=== PATIENT | female | born 1950 | race Caucasian/White ===

== ENCOUNTER 2022-07-19 08:04 | Outpatient (CLI) | payer MEDICARE, BC, SELFPAY ==
--- NOTE | 2022-07-19 08:15 | CRLHL7_ITS ---
For Patients: As a result of the Century Cures Act, medical imaging exams and procedure reports are released immediately into your electronic medical record. You may view this report before your referring provider. If you have questions, please contact your health care provider. BILATERAL SCREENING MAMMOGRAM WITH COMPUTER-AIDED DETECTION AND TOMOSYNTHESIS TECHNIQUE: CC and MLO views were obtained. These mammographic images have been obtained using full-field digital technique. These mammographic images were interpreted with the benefit of computer-aided detection. Breast Tomosynthesis was used in this interpretation. COMPARISON FILM: 07/13/21, 06/12/20, 04/26/19. FINDINGS: There are scattered areas of fibroglandular density IMPRESSION: There is no radiographic evidence for malignancy. ASSESSMENT: BI-RADS Category 1: Negative RECOMMENDATION: Routine screening mammogram in 1 year. A lay language report of this examination will be provided to the patient. García Irizarry M.D. Diagnostic Radiologist [email or web address] ERICK/Dictated by: García Irizarry MD @ 07/19/2022 12:19:00 PM (Electronically Signed)
== END 2022-07-19 08:05 | disposition home or self-care (01) ==
LOC: MAMMO 08:07
PROVIDERS: PCP Family Medicine; Visit Provider Family Medicine
DX: Z12.31 Encounter for screening mammogram for malignant neoplasm of breast (principal)
CPT/HCPCS: 77063; 77067

== ENCOUNTER 2022-08-01 15:08 | Outpatient (CLI) | payer MEDICARE, BC, SELFPAY ==
[2022-08-01 17:28] LABS: Chloride* 105 mmol/L (96-114); Potassium* 4.9 mmol/L (3.6-5.1); Sodium* 140 mmol/L (135-149)
[2022-08-01 17:31] LABS: Blood Urea Nitrogen* 24 mg/dL (7-30); Carbon Dioxide* 29 mmol/L (20-32); Cholesterol* 227 mg/dL (90-199); Creatinine* 0.9 mg/dL (0.5-1.5); Estimated Glomerular Filt Rate 67 ml/min; Glucose* 94 mg/dL (60-115)
[2022-08-01 17:32] LABS: Calcium* 9.6 mg/dL (8.4-10.6); HDL Cholesterol* 61 mg/dL (>=50); LDL Cholesterol Calculated 123 mg/dL (<100); Triglycerides* 214 mg/dL (40-149)
[2022-08-01 17:44] LABS: Vitamin D 25 Hydroxy* 64 ng/mL (30-80)
== END 2022-08-01 15:09 | disposition home or self-care (01) ==
PROVIDERS: PCP Family Medicine; Visit Provider Family Medicine
DX: R94.4 Abnormal results of kidney function studies (principal); M85.80 Other specified disorders of bone density and structure, unspecified site; E78.5 Hyperlipidemia, unspecified; E03.9 Hypothyroidism, unspecified
CPT/HCPCS: 80048; 80061; 82306; 84443

== ENCOUNTER 2023-07-23 08:58 | Outpatient (CLI) | payer MEDICARE, BC, SELFPAY ==
--- NOTE | 2023-07-23 09:15 | CRLHL7_ITS ---
For Patients: As a result of the Century Cures Act, medical imaging exams and procedure reports are released immediately into your electronic medical record. You may view this report before your referring provider. If you have questions, please contact your health care provider. BILATERAL SCREENING MAMMOGRAM WITH COMPUTER-AIDED DETECTION AND TOMOSYNTHESIS TECHNIQUE: CC and MLO views were obtained. These mammographic images have been obtained using full-field digital technique. These mammographic images were interpreted with the benefit of computer-aided detection. Breast Tomosynthesis was used in this interpretation. COMPARISON FILM: 07/19/22, 07/13/21, 06/12/20. FINDINGS: There are scattered areas of fibroglandular density IMPRESSION: There is no radiographic evidence for malignancy. ASSESSMENT: BI-RADS Category 2: Benign RECOMMENDATION: Routine screening mammogram in 1 year. A lay language report of this examination will be provided to the patient. García Irizarry M.D. Diagnostic Radiologist [email or web address] ERICK/Dictated by: García Irizarry MD @ 07/23/2023 12:04:00 PM (Electronically Signed)
== END 2023-07-23 08:59 | disposition home or self-care (01) ==
LOC: MAMMO 08:59
PROVIDERS: PCP Family Medicine; Visit Provider Family Medicine
DX: Z12.31 Encounter for screening mammogram for malignant neoplasm of breast (principal)
CPT/HCPCS: 77063; 77067

== ENCOUNTER 2023-08-13 09:38 | Outpatient (CLI) | payer MEDICARE, BC, SELFPAY | END 2023-08-13 09:39 | disposition home or self-care (01) | LOC: NFLDREF 14:51 | PROVIDERS: PCP Family Medicine; Referring Provider Family Medicine; Visit Provider Family Medicine | DX: Z00.00 Encounter for general adult medical examination without abnormal findings (principal); E03.9 Hypothyroidism, unspecified; E78.5 Hyperlipidemia, unspecified; M85.80 Other specified disorders of bone density and structure, unspecified site; N95.1 Menopausal and female climacteric states; M85.89 Other specified disorders of bone density and structure, multiple sites | CPT/HCPCS: 80053; 80061; 82306; 84443 ==

== ENCOUNTER 2023-09-10 12:52 | Outpatient (CLI) | payer MEDICARE, BC, SELFPAY ==
--- NOTE | 2023-09-10 13:00 | CRLHL7_ITS ---
For Patients: As a result of the Century Cures Act, medical imaging exams and procedure reports are released immediately into your electronic medical record. You may view this report before your referring provider. If you have questions, please contact your health care provider. DXA BONE MINERAL DENSITY STUDY Current height (in): 60.5. Weight (lb): 131.0. Menopause age: 48. Ethnicity: White. Reason for exam: Osteopenia. 1. Have you had a previous hip or vertebral fracture? No. 2. Have you had any fractures during your adult life which did not result from significant trauma (e.g., auto accident)? No. 3. Did either of your parents have a hip fracture? No. 4. Do you smoke? No. 5. Have you ever taken Glucocorticoids? No. 6. Do you have rheumatoid arthritis? No. 7. Do you have secondary osteoporosis? No. 8. Do you drink 3 or more alcoholic drinks per day? No. 9. Are you being treated for osteoporosis? No. 10. Have you ever taken any of the following medications: Actonel, Evista, Fosamax, Miacalcin, Reclast, Boniva, Forteo, HRT (i.e. estrogen/hormone therapy), Protelos, Prolia, Vitamin D, Calcium, other ??? please specify. ANSWER: Yes. Vitamin D, calcium. 11. Do you have any of the following medical conditions: Anorexia or bulimia, asthma or emphysema, end stage renal disease, hyperparathyroidism, any seizure disorders, cancer, inflammatory bowel diseases, hysterectomy, other ??? please specify. ANSWER: No. 12. What was your maximum height (inches)? 61. 13. Do you perform weight bearing exercise regularly? Yes. 14. Do you regularly consume dairy products? Yes. 15. Do you drink caffeinated beverages? Yes. 16. At what age did your period start? 7. 17. Are you premenopausal? No. 18. How many full-term pregnancies have you had? 2. 19. Have you ever missed your period for more than 6 months in a row (not including or menopause)? No. TECHNIQUE: Bone mineral density study was performed using the [employer]. FINDINGS: The results of the study expressed as bone mineral density (BMD) are as follows: Lumbar spine L1 to L3: BMD: 1.000 g/cm2. T-score: -0.2. Z-score: 2.2. Neck Left: BMD: 0.595 g/cm2. T-score: -2.3. Z-score: -0.2. Right: BMD: 0.719 g/cm2. T-score: -1.2. Z-score: 0.9. Total Left: BMD: 0.767 g/cm2. T-score: -1.4. Z-score: 0.4. Right: BMD: 0.872 g/cm2. T-score: -0.6. Z-score: 1.2. IMPRESSION: Osteopenia. *Comparison exams done prior to 04/2020 were performed on different unit, [employer]. COMPARISON: Compared with scan of 07/12/2020, the bone mineral density has increased by 7.5 percent at the spine and increased by 1.0 percent at the hip. FRAX 10-year Fracture Risk Major Osteoporotic Fracture: 15 percent Hip Fracture: 4.3 percent Reported Risk Factors: [place] () Neck BMD = 0.595, BMI = 25.2 García Irizarry M.D. Diagnostic Radiologist [email or web address] Transcribed: 11:11 am DW/Dictated by: García Irizarry MD @ 09/11/2023 10:03:00 AM DW/Dictated by: García Irizarry MD @ 09/11/2023 10:03:00 AM (Electronically Signed)
== END 2023-09-10 12:53 | disposition home or self-care (01) ==
PROVIDERS: PCP Family Medicine; Visit Provider Family Medicine
DX: M85.80 Other specified disorders of bone density and structure, unspecified site (principal); Z78.0 Asymptomatic menopausal state
CPT/HCPCS: 77080

== ENCOUNTER 2023-10-25 15:59 | Emergency (ER) | payer MEDICARE, BC, SELFPAY ==
[2023-10-25 16:03] VITALS: BP 156/81; PULSE 83; RESP 16; TEMP 36.4; O2SAT 100; BMI 26.4
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
[2023-10-25] MEDS: OXYCODONE 5 MG TABLET 2.5 MG PO (17:11)
[2023-10-25 17:30] VITALS: PULSE 77; O2SAT 98
== END 2023-10-25 17:32 | disposition home or self-care (01) ==
PROVIDERS: Emergency Provider Student in an Organized Health Care Education/Training Program; PCP Family Medicine
DX: T23.002A Burn of unspecified degree of left hand, unspecified site, initial encounter (principal); X13.1XXA Other contact with steam and other hot vapors, initial encounter
CPT/HCPCS: 95992; 99283; A9270

== ENCOUNTER 2023-11-17 13:51 | Outpatient (CLI) | payer MEDICARE, BC, SELFPAY ==
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
--- OUTSIDE RECORDS SUMMARY | 2023-11-20 10:55 | XMS_ITS | Encounter Summary ---
Author Name Unknown Organization [facility] Address [address] [place] [address] Phone Care Team Providers Care Information Systems Security Specialist Name Role Phone Unavailable Primary Care Provider Unavailabl e Encounter Details Date Type Department Care Team Description 10/27/2023 Travel Social History Tobacco Use Types Packs/Day Years [...] Coronavirus/COVID-19? 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
== END 2023-11-17 13:52 | disposition home or self-care (01) ==
LOC: NFLDREF 11-20 10:53
PROVIDERS: PCP Family Medicine; Referring Provider Family Medicine; Visit Provider Registered Nurse
DX: R30.0 Dysuria (principal); N39.0 Urinary tract infection, site not specified
CPT/HCPCS: 87086

== ENCOUNTER 2024-08-16 09:25 | Outpatient (CLI) | payer MEDICARE, BC, SELFPAY ==
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
--- OUTSIDE RECORDS SUMMARY | 2024-08-18 12:19 | XMS_ITS | Referral Summary ---
Author Organization [facility] Address [address] [place], [place] [address] [address] Phone Care Team Providers Care Marketing Communications Assistant Name Role Phone Unavailable Primary Care Provider Unavailabl e Source Comments [employer] is fully rolled out on [employer]. Last update 04/14/09.Tiansheng Allergies Active Allergy Reactions Criticality Noted Date [...] Orientation Not on file Plan of Treatment Not on file [id number] [facility] [place] [id number]
== END 2024-08-16 09:26 | disposition home or self-care (01) ==
LOC: NFLDREF 08-18 12:18
PROVIDERS: PCP Family Medicine; Referring Provider Family Medicine; Visit Provider Family Medicine
DX: E03.9 Hypothyroidism, unspecified (principal); E78.5 Hyperlipidemia, unspecified; M85.80 Other specified disorders of bone density and structure, unspecified site; R94.4 Abnormal results of kidney function studies
CPT/HCPCS: 80053; 80061; 82306; 84443

== ENCOUNTER 2024-10-25 14:28 | Outpatient (CLI) | payer MEDICARE, BC, SELFPAY ==
--- NOTE | 2024-10-25 14:40 | CRLHL7_ITS ---
For Patients: As a result of the Century Cures Act, medical imaging exams and procedure reports are released immediately into your electronic medical record. You may view this report before your referring provider. If you have questions, please contact your health care provider. BILATERAL SCREENING MAMMOGRAM WITH COMPUTER-AIDED DETECTION AND TOMOSYNTHESIS TECHNIQUE: CC and MLO views were obtained. These mammographic images have been obtained using full-field digital technique. These mammographic images were interpreted with the benefit of computer-aided detection. Breast Tomosynthesis was used in this interpretation. COMPARISON FILM: 07/23/23, 07/19/22, 07/13/21. FINDINGS: There are scattered areas of fibroglandular density IMPRESSION: There is no radiographic evidence for malignancy. ASSESSMENT: BI-RADS Category 2: Benign RECOMMENDATION: Routine screening mammogram in 1 year. A lay language report of this examination will be provided to the patient. García Irizarry M.D. Diagnostic Radiologist [email or web address] Transcribed: 3:45 p.mDavid melvin/Dictated by: García Irizarry MD @ 10/26/2024 9:06:00 AM (Electronically Signed)
== END 2024-10-25 14:29 | disposition home or self-care (01) ==
LOC: MAMMO 14:30
PROVIDERS: PCP Family Medicine; Visit Provider Family Medicine
DX: Z12.31 Encounter for screening mammogram for malignant neoplasm of breast (principal)
CPT/HCPCS: 77063; 77067

== ENCOUNTER 2025-07-28 10:16 | Outpatient (CLI) | payer MEDICARE, BC, SELFPAY ==
--- NOTE | 2025-07-28 11:25 | P.ANES_ITS ---
Anesthesia Charges Start Date/Time Anesthesia Start Date: 07/28/25 Anesthesia Start Time: 10:53 Stop Date/Time Anesthesia Stop Date: 07/28/25 Anesthesia Stop Time: 11:23 Summary Extremes of Age - Over 70 or under 1: MDA Coding CPT Codes CPT Codes: ANES LWR INTST NDSC NOS - 06988 ([id number]) P2 - PATIENT W/MILD SYST DISEASE, QK - HOOF TRIMMER 2-4 CNCRNT ANES PROC, QX - HOME ASSESSMENT NURSE SVC W/ MD MED DIRECTION Additional Codes: Summary - Extremes of Age - Over 70 or under 1: MDA ([id number])
--- NOTE | 2025-07-28 11:25 | W.ANESCHARGE ---
Anesthesia Charges Start Date/Time Anesthesia Start Date: 07/28/25 Anesthesia Start Time: 10:53 Stop Date/Time Anesthesia Stop Date: 07/28/25 Anesthesia Stop Time: 11:23 Summary Extremes of Age - Over 70 or under 1: MDA Coding CPT Codes CPT Codes: ANES LWR INTST NDSC NOS - 43116 ([id number]) P2 - PATIENT W/MILD SYST DISEASE, QK - BAR TURNER 2-4 CNCRNT ANES PROC, QX - MARGARINE CHURN OPERATOR SVC W/ MD MED DIRECTION Additional Codes: Summary - Extremes of Age - Over 70 or under 1: MDA ([id number])
--- NOTE | 2025-07-28 11:28 | P.ANES_ITS ---
Anesthesia Charges Start Date/Time Anesthesia Start Date: 07/28/25 Anesthesia Start Time: 10:53 Stop Date/Time Anesthesia Stop Date: 07/28/25 Anesthesia Stop Time: 11:23 Coding CPT Codes CPT Codes: RULA LWR INTST NDSC NOS - 07943 ([id number]) P2 - PATIENT W/MILD SYST DISEASE, QK - CORKING MACHINE OPERATOR 2-4 CNCRNT ANES PROC, QX - VULCAN CREWMEMBER SVC W/ MD MED DIRECTION Additional Codes: Summary - Extremes of Age - Over 70 or under 1: [id number] 1 W.PM.ANESCHARGES 1 3 W.ANESAGES
--- NOTE | 2025-07-28 11:28 | W.ANESCHARGE ---
Anesthesia Charges Start Date/Time Anesthesia Start Date: 07/28/25 Anesthesia Start Time: 10:53 Stop Date/Time Anesthesia Stop Date: 07/28/25 Anesthesia Stop Time: 11:23 Coding CPT Codes CPT Codes: RULA LWR INTST NDSC NOS - 98194 ([id number]) P2 - PATIENT W/MILD SYST DISEASE, QK - HARDWARE SALES ASSISTANT 2-4 CNCRNT ANES PROC, QX - STOCK REPLENISHER SVC W/ MD MED DIRECTION Additional Codes: Summary - Extremes of Age - Over 70 or under 1: [id number] 1 W.PM.ANESCHARGES 1 3 W.ANESAGES
== END 2025-07-28 10:17 | disposition home or self-care (01) ==
LOC: OP CLINIC 10:16
PROVIDERS: PCP Family Medicine; Visit Provider Surgery
DX: Z12.11 Encounter for screening for malignant neoplasm of colon (principal); Z86.0100 Personal history of colon polyps, unspecified; D12.2 Benign neoplasm of ascending colon; D12.5 Benign neoplasm of sigmoid colon; K64.8 Other hemorrhoids; K57.30 Diverticulosis of large intestine without perforation or abscess without bleeding
CPT/HCPCS: 00811; 45385; 88302; 88305; 99100

== ENCOUNTER 2025-08-22 09:15 | Outpatient (CLI) | payer MEDICARE, BC, SELFPAY | END 2025-08-22 09:16 | disposition home or self-care (01) | LOC: NFLDREF 08-23 08:56 | PROVIDERS: PCP Family Medicine; Referring Provider Family Medicine; Visit Provider Family Medicine | DX: E78.5 Hyperlipidemia, unspecified (principal); E03.9 Hypothyroidism, unspecified | CPT/HCPCS: 80061; 82306; 84443 ==

== ENCOUNTER 2025-09-15 14:19 | Outpatient (CLI) | payer MEDICARE, BC, SELFPAY ==
--- NOTE | 2025-09-15 14:30 | CRLHL7_ITS ---
For Patients: As a result of the Century Cures Act, medical imaging exams and procedure reports are released immediately into your electronic medical record. You may view this report before your referring provider. If you have questions, please contact your health care provider. XR DXA BONE MINERAL DENSITY (BMD) Current height (in): 60.5. Weight (lb): 126.0. Menopause age: 48. Ethnicity: White. Reason for exam: Osteopenia. 1. Have you had a previous hip or vertebral fracture? No. 2. Have you had any fractures during your adult life which did not result from significant trauma (e.g., auto accident)? No. 3. Did either of your parents have a hip fracture? No. 4. Do you smoke? No. 5. Have you ever taken Glucocorticoids? No. 6. Do you have rheumatoid arthritis? No. 7. Do you have secondary osteoporosis? No. 8. Do you drink 3 or more alcoholic drinks per day? No. 9. Are you being treated for osteoporosis? No. 10. Have you ever taken any of the following medications: Actonel, Evista, Fosamax, Miacalcin, Reclast, Boniva, Forteo, HRT (i.e. estrogen/hormone therapy), Protelos, Prolia, Vitamin D, Calcium, other ??? please specify. ANSWER: Yes, vitamin D, calcium. 11. Do you have any of the following medical conditions: Anorexia or bulimia, asthma or emphysema, end stage renal disease, hyperparathyroidism, any seizure disorders, cancer, inflammatory bowel diseases, hysterectomy, other ??? please specify. ANSWER: No. 12. What was your maximum height (inches)? 61. 13. Do you perform weight bearing exercise regularly? Yes. 14. Do you regularly consume dairy products? Yes. 15. Do you drink caffeinated beverages? Yes. 16. At what age did your period start? 7. 17. Are you premenopausal? No. 18. How many full-term pregnancies have you had? 2. 19. Have you ever missed your period for more than 6 months in a row (not including or menopause)? No. TECHNIQUE: Bone mineral density study was performed using the [employer]. FINDINGS: The results of the study expressed as bone mineral density (BMD) are as follows: Lumbar spine L1 to L3: BMD: 0.956 g/cm2. T-score: -0.6. Z-score: 1.9 Neck Left: BMD: 0.559 g/cm2. T-score: -2.6. Z-score: -0.4 Right: BMD: 0.670 g/cm2. T-score: -1.6. Z-score: 0.6 Total Left: BMD: 0.754 g/cm2. T-score: -1.5. Z-score: 0.4 Right: BMD: 0.852 g/cm2. T-score: -0.7. Z-score: 1.2 IMPRESSION: Osteoporosis. *Comparison exams done prior to 04/2020 were performed on different unit, [employer]. COMPARISON: Compared with scan of 09/10/2023, the bone mineral density has decreased by 4.4 percent at the spine. Katty Holly M.D. Body/Diagnostic Radiologist [email or web address] Transcribed: 9:05 am DW/Dictated by: Katty Holly MD @ 09/16/2025 3:14:00 AM (Electronically Signed)
== END 2025-09-15 14:20 | disposition home or self-care (01) ==
LOC: RAD 14:20
PROVIDERS: PCP Family Medicine; Visit Provider Family Medicine
DX: M85.89 Other specified disorders of bone density and structure, multiple sites (principal); M81.0 Age-related osteoporosis without current pathological fracture
CPT/HCPCS: 77080

== ENCOUNTER 2025-10-26 07:54 | Outpatient (CLI) | payer MEDICARE, BC, SELFPAY ==
--- NOTE | 2025-10-26 08:15 | CRLHL7_ITS ---
For Patients: As a result of the Century Cures Act, medical imaging exams and procedure reports are released immediately into your electronic medical record. You may view this report before your referring provider. If you have questions, please contact your health care provider. INDICATION: BILATERAL SCREENING MAMMOGRAM, ASYMPTOMATIC 75 Y/O FEMALE COMPARISON: 10/25/2024, 07/23/2023, 07/19/2022 TECHNIQUE: Digital mammogram in CC and MLO projections including computer-aided detection (CAD) and tomosynthesis. BREAST COMPOSITION: There are scattered areas of fibroglandular density. FINDINGS: No suspicious findings. ASSESSMENT: BI-RADS 1 Negative RECOMMENDATION: Annual screening mammogram. A lay language report of this examination will be provided to the patient. Dictated by: García Irizarry MD @ 10/26/2025 11:43:25 (Electronically Signed)
== END 2025-10-26 07:55 | disposition home or self-care (01) ==
LOC: MAMMO 07:55
PROVIDERS: PCP Family Medicine; Visit Provider Family Medicine
DX: Z12.31 Encounter for screening mammogram for malignant neoplasm of breast (principal)
CPT/HCPCS: 77063; 77067